=== PATIENT | female | born 1980 | race Asian ===

== ENCOUNTER → 2024-11-05 10:08 | Outpatient (REF) | payer OTHER, SELFPAY | LOC: PNTC 10:08 | PROVIDERS: ATTENDING PHYSICIAN Nurse Practitioner Family | DX: O09.519 Supervision of elderly primigravida, unspecified trimester (principal); O26.20 Pregnancy care for patient with recurrent pregnancy loss, unspecified trimester | CPT/HCPCS: 76801; 76817 ==

== ENCOUNTER → 2024-11-27 11:03 | Outpatient (REF) | payer OTHER, SELFPAY | LOC: PNTC 11:03 | PROVIDERS: ATTENDING PHYSICIAN Student in an Organized Health Care Education/Training Program | DX: O09.519 Supervision of elderly primigravida, unspecified trimester (principal); O20.0 Threatened abortion; O99.280 Endocrine, nutritional and metabolic diseases complicating pregnancy, unspecified trimester | CPT/HCPCS: 76801 ==

== ENCOUNTER → 2024-12-19 09:11 | Outpatient (REF) | payer OTHER, SELFPAY | LOC: PNTC 09:11 | PROVIDERS: ATTENDING PHYSICIAN Student in an Organized Health Care Education/Training Program | DX: O09.529 Supervision of elderly multigravida, unspecified trimester (principal); Z36.0 Encounter for antenatal screening for chromosomal anomalies; Z36.82 Encounter for antenatal screening for nuchal translucency | CPT/HCPCS: 76801; 76813 ==

== ENCOUNTER → 2025-02-12 09:48 | Outpatient (REF) | payer OTHER, SELFPAY | LOC: PNTC 09:48 | PROVIDERS: ATTENDING PHYSICIAN Obstetrics & Gynecology | DX: O99.282 Endocrine, nutritional and metabolic diseases complicating pregnancy, second trimester (principal); O43.122 Velamentous insertion of umbilical cord, second trimester; O09.522 Supervision of elderly multigravida, second trimester | CPT/HCPCS: 76811; 76817 ==

== ENCOUNTER → 2025-03-13 10:30 | Outpatient (REF) | payer OTHER, SELFPAY | LOC: PNTC 10:30 | PROVIDERS: ATTENDING PHYSICIAN Obstetrics & Gynecology | DX: O09.522 Supervision of elderly multigravida, second trimester (principal); O99.282 Endocrine, nutritional and metabolic diseases complicating pregnancy, second trimester; O43.122 Velamentous insertion of umbilical cord, second trimester | CPT/HCPCS: 76816 ==

== ENCOUNTER → 2025-04-10 10:02 | Outpatient (REF) | payer OTHER, SELFPAY | LOC: PNTC 10:02 | PROVIDERS: ATTENDING PHYSICIAN Obstetrics & Gynecology | DX: O09.529 Supervision of elderly multigravida, unspecified trimester (principal); O99.280 Endocrine, nutritional and metabolic diseases complicating pregnancy, unspecified trimester | CPT/HCPCS: 76816 ==

== ENCOUNTER → 2025-05-08 10:00 | Outpatient (REF) | payer OTHER, SELFPAY | LOC: PNTC 10:00 | PROVIDERS: ATTENDING PHYSICIAN Obstetrics & Gynecology | DX: O09.529 Supervision of elderly multigravida, unspecified trimester (principal); E03.9 Hypothyroidism, unspecified | CPT/HCPCS: 76816 ==

== ENCOUNTER → 2025-05-29 13:04 | Outpatient (REF) | payer OTHER, SELFPAY | LOC: PNTC 13:04 | PROVIDERS: ATTENDING PHYSICIAN Obstetrics & Gynecology | DX: O09.529 Supervision of elderly multigravida, unspecified trimester (principal); O43.129 Velamentous insertion of umbilical cord, unspecified trimester | CPT/HCPCS: 59025; 76815 ==

== ENCOUNTER → 2025-06-05 08:56 | Outpatient (REF) | payer OTHER, SELFPAY | LOC: PNTC 08:56 | PROVIDERS: ATTENDING PHYSICIAN Obstetrics & Gynecology | DX: O09.529 Supervision of elderly multigravida, unspecified trimester (principal); E03.9 Hypothyroidism, unspecified; O43.129 Velamentous insertion of umbilical cord, unspecified trimester | CPT/HCPCS: 59025; 76816 ==

== ENCOUNTER → 2025-06-12 08:59 | Outpatient (REF) | payer OTHER, SELFPAY | LOC: PNTC 08:59 | PROVIDERS: ATTENDING PHYSICIAN Obstetrics & Gynecology | DX: O09.529 Supervision of elderly multigravida, unspecified trimester (principal); O43.129 Velamentous insertion of umbilical cord, unspecified trimester | CPT/HCPCS: 59025; 76815 ==

== ENCOUNTER → 2025-06-19 11:11 | Outpatient (REF) | payer OTHER, SELFPAY | LOC: PNTC 11:11 | PROVIDERS: ATTENDING PHYSICIAN Obstetrics & Gynecology | DX: O09.529 Supervision of elderly multigravida, unspecified trimester (principal); O43.129 Velamentous insertion of umbilical cord, unspecified trimester | CPT/HCPCS: 59025; 76815 ==

== ENCOUNTER 2025-06-22 09:12 | Inpatient (IN) | payer OTHER, SELFPAY ==
[2025-06-22 09:23] VITALS: BMI 27.1
[2025-06-22 09:25] VITALS: BP 158/99
[2025-06-22] MEDS: LR 1000 IV ×2 (09:30→12:01)
[2025-06-22 10:06] LABS: Hematocrit 34.6 % (37.0-47.0); Hemoglobin 12.0 g/dL (12.0-16.0); Mean Corp Hgb Conc. 34.7 g/dL (33.0-37.0); Mean Corpuscular Volume 86.1 fL (81.0-99.0); Nucleated Red Blood Cells % 0 %; Platelet Count 203 10^3/uL (130-400); Red Cell Dist. Width 13.2 % (11.5-14.5)
[2025-06-22] MEDS: PENICILLIN 110 UNITS IV (10:20)
[2025-06-22] MEDS: SUBLIMAZE 100 MCG EPIDURAL (10:34)
[2025-06-22] MEDS: FENTANYL/BUPIVACAINE 100 EPIDURAL (10:34)
[2025-06-22 11:28] LABS: ALT (SGPT) 11 U/L (0-35); AST (SGOT) 21 U/L (14-36); Albumin 3.6 g/dl (3.5-5.0); Alkaline Phosphatase 221 U/L (38-126); Blood Urea Nitrogen 4 mg/dl (7-17); Calcium 10.0 mg/dl (8.4-10.2); Carbon Dioxide 20 mmol/L (22-30); Chloride 108 mmol/L (98-107); Estimated Creatinine Clearance 111 ml/min; Glucose 82 mg/dl (70-99); Potassium 4.2 mmol/L (3.5-5.1); Sodium 132 mmol/L (135-145); Total Protein 6.1 g/dl (6.3-8.2); eGFR > 60.00
[2025-06-22] MEDS: PITOCIN 30 UNITS/NSS 500 ML IV (11:59)
[2025-06-22] MEDS: MOTRIN 600 MG PO (20:39)
[2025-06-22] MEDS: COLACE 100 MG PO (20:39)
[2025-06-23] MEDS: MOTRIN 600 MG PO ×2 (05:05→21:20)
[2025-06-23] MEDS: SYNTHROID PO (05:05)
[2025-06-23 05:57] LABS: Hematocrit 32.1 % (37.0-47.0); Hemoglobin 11.0 g/dL (12.0-16.0)
[2025-06-23] MEDS: SYNTHROID 25 MCG PO (07:27)
[2025-06-23] MEDS: COLACE 100 MG PO ×2 (08:34→21:13)
[2025-06-23] MEDS: PRENATAL PLUS 1 TABLET PO (08:34)
[2025-06-24] MEDS: COLACE 100 MG PO (08:00)
[2025-06-24] MEDS: SYNTHROID 25 MCG PO (08:00)
[2025-06-24] MEDS: PRENATAL PLUS 1 TABLET PO (08:00)
[2025-06-24] MEDS: MYLICON 80 MG PO (10:21)
[2025-06-25 12:56] LABS: Syphilis/T. pallidum Ab Reflex Negative (Negative)
== END 2025-06-24 12:10 | disposition home or self-care (01) | DRG 807 ==
LOC: LDRP 09:12
PROVIDERS: ADMITTING PHYSICIAN Obstetrics & Gynecology
PROC: 0KQM0ZZ Repair Perineum Muscle, Open Approach (ICD-10-PCS; 2025-06-22)
PROC: 10E0XZZ Delivery of Products of Conception, External Approach (ICD-10-PCS; 2025-06-22)
DX: O99.824 Streptococcus B carrier state complicating childbirth (principal); Z37.0 Single live birth; Z3A.38 38 weeks gestation of pregnancy; O16.4 Unspecified maternal hypertension, complicating childbirth; O70.1 Second degree perineal laceration during delivery
CPT/HCPCS: 80053; 82570; 84156; 85014; 85018; 85025; 86780; 86850; 86900; 86901; 88307